=== PATIENT | female | born 1960 ===

== ENCOUNTER 2022-04-25 08:07 | Day surgery (SDC) | payer OTHER ==
[~2022-04-25 08:07] MED LIST: DEXAMETHASONE SOD PHOSPHATE 4 MG/ML 1 ML VIAL IV ONE; HYDROmorphone 0.5 MG/0.5 ML SYRINGE IVP PRN; LACTATED RINGERS 1,000 ML IV SCH; LIDOCAINE 1% (10MG/ML) FOR IV START INTRADERMA PRN; ONDANSETRON 4 MG/2 ML VIAL IVP ONE; Pre Op ABX Message 1 EACH MISC MISCELLANE ONE
[2022-04-25 08:34] VITALS: RESP 16; TEMP 97.5
[2022-04-25] MEDS ORDERED: MIDAZOLAM 2 MG/2 ML VIAL IVP ONE (09:00)
[2022-04-25] MEDS ORDERED: fentaNYL (PF) 50 MCG/1 ML VIAL IVP ONE (09:03)
[2022-04-25] MEDS ORDERED: MIDAZOLAM 2 MG/2 ML VIAL ONE (09:54)
[2022-04-25] MEDS ORDERED: LIDOCAINE 2% INJ 20 MG/ML (2 ML VIAL) ONE (09:54)
[2022-04-25] MEDS ORDERED: fentaNYL (PF) 50 MCG/ML 2 ML AMP ONE (09:54)
[2022-04-25] MEDS ORDERED: PHENYLEPHRINE-0.9% NACL SYG 1,000 MCG/10 ML SYRINGE ONE (09:54)
[2022-04-25] MEDS ORDERED: PROPOFOL 10 MG/ML 20 ML VIAL IV ONE (09:54)
[2022-04-25] MEDS ORDERED: SODIUM CHLORIDE 0.9% (PF) 10 ML VIAL ONE (09:54)
[2022-04-25] MEDS ORDERED: ePHEDrine 50 MG/ML 1 ML VIAL ONE (09:54)
[2022-04-25] MEDS ORDERED: ROPIVACAINE 5 MG/ML 30 ML VIAL ONE (09:54)
[2022-04-25] MEDS ORDERED: ceFAZolin 1,000 MG in SODIUM CHLORIDE 0.9% 1,000 ML IRRIGATION ONE (09:59)
--- NOTE | 2022-04-25 11:19 | P.OP ---
Date of Procedure: 04/25/22 Preoperative Diagnosis: Hallux valgus left foot Postoperative Diagnosis: Same Procedure(s) Performed: Lapidus bunionectomy left foot Implants: Lapiplasty plates and screws Anesthesia: GARCIA Surgeon: Richardson Garner Estimated Blood Loss (ml): 3 Pathology: none sent Condition: stable Disposition: PACU Description of Procedure: Prior to the patient being brought to the operating room, anesthesia administered a nerve block on the right lower extremity. Patient brought into the operative room and placed on table supine position. Timeout was taken to confirm correct patient identifiers, correct laterality of surgery, and correct procedure. Once all staff in the room were in agreement with the timeout, the patient was induced and placed under general anesthesia. A well-padded tourniquet was placed on the right ankle and then the right foot was prepped and draped usual manner. The right foot was exsanguinated and the tourniquet inflated to 250 mmHg. Utilizing direct fluoroscopic visualization an incision was made lateral to the first metatarsal phalangeal joint. The blade was advanced deep in a lateral capsulotomy performed. Then the blade was rotated and advanced proximally to release the lateral sesamoid collateral ligament. The great toe was adducted under fluoroscopy to ensure that the sesamoids were freed. Then attention was directed over the dorsal aspect of the foot where an incision was made over the first tarsometatarsal joint and medial to the long extensor tendon. It was deepened down to the subcutaneous tissue careful to identify, avoid, and retract any neurovascular structures and cauterize any bleeding vessels. Dissection was then continued down to the deep tissue. An incision was made to the periosteal capsular structures medial to the long extensor tendon. The periosteum capsular structures were reflected from their osseous attachments over the first tarsometatarsal joint. [place] elevator was used to create a pocket in the soft tissue on the lateral side of the base of the first metatarsal. A guidewire was placed in the base of the first metatarsal 1 cm distal to the joint. This is used to act as a joystick to correct the frontal plane rotation of the first metatarsal. The 3 in 1 device was inserted into the first tarsometatarsal joint. Then a small stab incision was made on the lateral side of the second metatarsal shaft just distal to the initial skin incision. The intermetatarsal angle reduction clamp was placed over the lateral side of the second metatarsal and the other aspect was placed on the medial side of the first metatarsal. Then while correcting the frontal plane rotation the inner metatarsal angle reduction clamp was then advanced to close the angle between the first and second metatarsals. Direct fluoroscopic visualization indicated when enough correction was achieved. This was indicated by closure of the first intermetatarsal angle and realignment of the sesamoids. Once the alignment was completed, a guidewire was placed through the reduction clamp to lock it in place. Pins were then placed through the cut guide to lock it in place. A sagittal saw was then used to resect the bases of the first metatarsal and articular surface of the medial cuneiform. The cut guide was then removed as well as wire and the reduction clamp. The distractor was placed over the guidewires and then the joint distracted so that the cut pieces of bone could be removed. Once that was completed the area was thoroughly irrigated with antibiotic saline. A 2.0 mm drill bit was then used to aggressively fenestrate the conjoining surfaces of the arthrodesis site. The fulcrum was then placed on the lateral side of the base of the first metatarsal. Then with the first metatarsal phalangeal joint dorsiflexed, the reduction clamp was then converted to a compression device and then the arthrodesis site was compressed. Fluoroscopy confirmed that the correction was maintained and that there was good bony contact at the arthrodesis site. Threaded olive wire was then placed across the arthrodesis site to maintain the reduction. The medial plate was positioned across the arthrodesis site. Once it was in proper position, temporary fixation wires were then placed at the most proximal distal holes in the plate. The inner holes closest to the arthrodesis site were drilled and then the compression/locking screws were inserted and tightened until fully seated. The temporary fixation wires were removed and the holes drilled. Locking screws were placed in the most distal proximal holes of the medial plate. The compression device was removed along with the guidewires. The dorsal plate was then positioned and adjusted under fluoroscopy. Once position was appropriate temperate fixation was placed in the most distal proximal holes of the plate. The inner holes closest to the arthrodesis site were drilled and the locking/compression screws were placed through the plate and tightened until the heads were fully seated. The temporary fixation was removed and the most distal proximal holes were drilled and locking screws inserted until fully seated. Final fluoroscopic imaging showed proper placement of all hardware with maintain correction of the intermetatarsal angle as well as maintain compression at of the arthrodesis site. The fulcrum and olive wire were removed. The wound is thoroughly irrigated with antibiotic saline. Deep closure done with 2-0 Vicryl. Subcu closure was done with 4-0 Monocryl. And skin closure done with3- 0 Stratafix in a running subcuticular manner. The small incisions made for the clamp and the lateral release were closed with 4-0 Monocryl.Dermal glue was placed over the dorsal incision. Once dried Steri-Strips are placed over all the incisions. The incision was covered with an Arthrex jumpstart dressing and then a dry sterile dressings applied to the foot. The tourniquet was then released and capillary refill return to all digits on the left foot. The patient was then placed in a well-padded, well molded posterior mold/sugar tong splint. The ankle and foot were held in neutral position until the splint was dried. Then anesthesia was reversed and the patient was taken recovery with vital signs stable.
--- NOTE | 2022-04-25 11:34 | P.ANPRN ---
Procedure Note - Anesthesia - Nerve Block Performed Left Popliteal Single Time Out Performed: Yes (900) Date of Procedure: 04/25/22 Procedure Start Time: : Procedure Stop Time: 09:04 Location of Patient: PreOp Indication: Acute Post-Operative Pain, Requested by Surgeon Specifically requested for management of pain by DrEloy: Richardson Garner Sedation Type: Sedate with meaningful contact maintained Preparation: Sterile Prep Position: Supine Catheter: None Needle Types: Pajunk Needle Gauge: 21 Ultrasound used to visualize needle placement: Yes Ultrasound used to observe medication spread: Yes Injectate: 0.5% Ropivacaine (see comment for volume) (15cc +10cc nacl pf) Blood Aspirated: No Pain Paresthesia on Injection Noted: No Resistance on Injection: Normal Image Stored and Saved: Yes Events: Uneventful and Well Tolerated
--- NOTE | 2022-04-25 11:35 | P.ANPRN ---
Procedure Note - Anesthesia - Nerve Block Performed Left Adductor Canal Single Time Out Performed: Yes (899) Date of Procedure: 04/25/22 Procedure Start Time: : Procedure Stop Time: :07 Location of Patient: PreOp Indication: Acute Post-Operative Pain, Requested by Surgeon Specifically requested for management of pain by DrEloy: Richardson Garner Sedation Type: Sedate with meaningful contact maintained Preparation: Sterile Prep Position: Supine Catheter: None Needle Types: Pajunk Needle Gauge: 21 Ultrasound used to visualize needle placement: Yes Ultrasound used to observe medication spread: Yes Injectate: 0.5% Ropivacaine (see comment for volume) (15cc +10cc nacl pf) Blood Aspirated: No Pain Paresthesia on Injection Noted: No Resistance on Injection: Normal Image Stored and Saved: Yes Events: Uneventful and Well Tolerated
[2022-04-25 12:34] VITALS: BP 144/81; PULSE 69
== END 2022-04-25 13:25 | disposition home or self-care (01) ==
LOC: OR 08:07
PROVIDERS: ATTEND Podiatrist
DX: M20.12 Hallux valgus (acquired), left foot (principal); G89.18 Other acute postprocedural pain; Z91.040 Latex allergy status; K21.9 Gastro-esophageal reflux disease without esophagitis; F17.200 Nicotine dependence, unspecified, uncomplicated
CPT/HCPCS: 28297; 64447; 64445; 76942; C1713; J2250; J1100; J0690 ×2; J2405; J3010 ×2; J2795; J2370; J2704; J2001